=== PATIENT | male | born 1945 | race Caucasian/White ===

== ENCOUNTER → 2016-04-27 | Outpatient (CLI) | payer OTHER, BC ==
[~2016-04-27] VITALS: Ht 177.8 cm; Wt 108.9 kg
[~2016-04-27] MED LIST: ATORVASTATIN CA10 MG PO; CATAPRES0.2 MG PO; CIPRO250 MG PO; CLONIDINE HCL0.2 MG PO; COLACE100 MG PO; ECOTRIN325 MG PO; FENOFIBRATE160 MG PO; FENOFIBRATE48 MG PO; HYDROCHLOROTHIA25 MG PO; HYDROCHLOROTHIA50 MG PO; KEPPRA500 MG PO; KLOR-CON M1010 MEQ PO; LABETALOL HCL200 MG PO; LEVETIRACETAM500 MG PO; LISINOPRIL20 MG PO; LO-DOSE ASPIRIN81 M1 PO; LOPRESSOR100 MG PO; METFORMIN HCL500 MG PO; METOPROLOL TAR100 MG PO; NORVASC10 MG PO; PROTONIX40 MG PO; VALSARTAN40 MG PO; VITAMIN D31000 UNIT PO; VITAMIN D35000 UNIT PO; ZESTRIL,PRINIVI20 MG PO
== END | disposition home or self-care (01) ==
LOC: AMB 09:00
DX: R79.89 Other specified abnormal findings of blood chemistry (principal); K80.70 Calculus of gallbladder and bile duct without cholecystitis without obstruction; I10 Essential (primary) hypertension; G40.909 Epilepsy, unspecified, not intractable, without status epilepticus; M10.9 Gout, unspecified; M19.90 Unspecified osteoarthritis, unspecified site; Z87.891 Personal history of nicotine dependence
CPT/HCPCS: 74330; 87081; C1757; C1769; J0330; J1100; J2250; J2405; J3010

== ENCOUNTER → 2016-05-15 | Outpatient (CLI) | payer MEDICARE, BC | END | disposition home or self-care (01) | LOC: CDC 10:00 | DX: R94.31 Abnormal electrocardiogram [ECG] [EKG] (principal); K80.20 Calculus of gallbladder without cholecystitis without obstruction | CPT/HCPCS: 93000 ==

== ENCOUNTER 2016-05-29 08:21 | Day surgery (SDC) | payer OTHER, BC ==
[~2016-05-29] VITALS: Ht 177.8 cm; Wt 108.0 kg
[2016-05-29 08:54] VITALS: BP 145/75
[2016-05-29 14:51] VITALS: BP 152/87
[2016-05-29 19:16] VITALS: BP 144/80
[2016-05-30] VITALS: BP 138/74
[2016-05-30 04:11] VITALS: BP 155/74
[2016-05-30 04:59] LABS: HEMATOCRIT 40.2 % (38.0-50.0); MCH 32.7 PG (29.0-34.0); MCHC 36.3 G/DL (30.0-36.0); MCV 89.9 FL (86-99); PLATELET COUNT 339 K/uL (156-360); RBC DIS.WIDTH-CV 13.4 % (11.8-14.6); RBC DIS.WIDTH-SD 43.8 % (39-53); RED BLOOD COUNT 4.47 M/uL (4.00-5.50)
[2016-05-30 05:03] LABS: CHLORIDE 103 mEq/L (99-109); POTASSIUM 3.6 mEq/L (3.7-5.4); SODIUM 138 mEq/L (136-147)
[2016-05-30 05:04] LABS: WHITE BLOOD COUNT 21.4 K/uL (4.1-10.2)
[2016-05-30 05:05] LABS: GLUCOSE 152 mg/dL (70-99)
[2016-05-30 05:06] LABS: ANION GAP 10 MEQ/L (2-14)
[2016-05-30 05:09] LABS: GFR ESTIMATE (CALCULATED) 53 mL/min/
[2016-05-30 05:10] LABS: UREA NITROGEN (BUN) 16 mg/dL (9-23)
[2016-05-30 08:14] VITALS: BP 143/81
[2016-05-30] MEDS ORDERED: NORCO 5/3251 TABLET PO (09:58)
== END 2016-05-30 11:08 | disposition home or self-care (01) ==
LOC: SDC 08:21 → 2SOUTH 12:12 → 2EAST 12:12 → 2SOUTH 12:12 → 2EAST 14:24 → SDC 15:24 → 2EAST 05-30 11:08
PROVIDERS: Surgery
PROC: 0FT44ZZ Resection of Gallbladder, Percutaneous Endoscopic Approach (ICD-10-PCS; principal; 2016-05-29)
DX: K80.10 Calculus of gallbladder with chronic cholecystitis without obstruction (principal); I12.9 Hypertensive chronic kidney disease with stage 1 through stage 4 chronic kidney disease, or unspecified chronic kidney disease; N18.3 Chronic kidney disease, stage 3 (moderate); E78.5 Hyperlipidemia, unspecified; R79.89 Other specified abnormal findings of blood chemistry; G40.909 Epilepsy, unspecified, not intractable, without status epilepticus; M10.9 Gout, unspecified
CPT/HCPCS: 80048; 85027; 88304; 94760; 94799; G0378; J1100; J1170; J2405; J2710; J3010; J7120

== ENCOUNTER → 2016-08-02 | Outpatient (CLI) | payer OTHER, BC ==
[~2016-08-02] VITALS: Ht 177.8 cm; Wt 104.3 kg
[~2016-08-02] MED LIST changes: +NORCO 5/3251 TABLET PO
== END | disposition home or self-care (01) ==
LOC: AMB 11:00
DX: Z45.89 Encounter for adjustment and management of other implanted devices (principal); D13.5 Benign neoplasm of extrahepatic bile ducts; K80.50 Calculus of bile duct without cholangitis or cholecystitis without obstruction; R93.3 Abnormal findings on diagnostic imaging of other parts of digestive tract; R79.89 Other specified abnormal findings of blood chemistry
CPT/HCPCS: 74328; 87081; 88305; C1757; C1769; J0330; J1100; J2405; J3010

== ENCOUNTER → 2016-10-04 | Outpatient (CLI) | payer OTHER, BC ==
[~2016-10-04] VITALS: Ht 175.3 cm; Wt 104.3 kg
== END | disposition home or self-care (01) ==
LOC: AMB 07:41
DX: D13.5 Benign neoplasm of extrahepatic bile ducts (principal); I12.9 Hypertensive chronic kidney disease with stage 1 through stage 4 chronic kidney disease, or unspecified chronic kidney disease; N18.3 Chronic kidney disease, stage 3 (moderate); E78.5 Hyperlipidemia, unspecified; G40.909 Epilepsy, unspecified, not intractable, without status epilepticus; Z87.891 Personal history of nicotine dependence
CPT/HCPCS: 74329; 87081; 88305; C1726; C1757; C1769; C2625; J0330; J0744; J3010

== ENCOUNTER 2017-03-26 16:26 | Emergency (ER) | payer OTHER, BC ==
[~2017-03-26] VITALS: Ht 175.3 cm; Wt 111.8 kg
[2017-03-26] MEDS ORDERED: COLCHICINE0.6 M1 PO (21:11)
[2017-03-26 21:32] VITALS: BP 156/83
== END 2017-03-26 21:33 | disposition home or self-care (01) ==
LOC: EME 16:26
DX: M25.572 Pain in left ankle and joints of left foot (principal); M79.89 Other specified soft tissue disorders; Z86.711 Personal history of pulmonary embolism; Z98.1 Arthrodesis status; I10 Essential (primary) hypertension; Z87.891 Personal history of nicotine dependence; Z79.82 Long term (current) use of aspirin
CPT/HCPCS: 73610; 93971; 99281; 99284

== ENCOUNTER → 2017-05-16 | Outpatient (CLI) | payer OTHER, BC ==
[~2017-05-16] VITALS: Ht 177.8 cm; Wt 113.9 kg
[~2017-05-16] MED LIST changes: +COLCHICINE0.6 M1 PO; +KLOR-CON 1010 ME1 PO; +PRAVACHOL40 MG PO
== END | disposition home or self-care (01) ==
LOC: AMB 08:00
DX: Z12.11 Encounter for screening for malignant neoplasm of colon (principal); D12.5 Benign neoplasm of sigmoid colon; K64.0 First degree hemorrhoids; K57.30 Diverticulosis of large intestine without perforation or abscess without bleeding; I10 Essential (primary) hypertension; E11.9 Type 2 diabetes mellitus without complications; G40.909 Epilepsy, unspecified, not intractable, without status epilepticus; Z86.73 Personal history of transient ischemic attack (TIA), and cerebral infarction without residual deficits; Z87.891 Personal history of nicotine dependence; Z79.82 Long term (current) use of aspirin
CPT/HCPCS: 88305; 93005; J2250